=== PATIENT | male | born 1950 | race Caucasian/White ===

== ENCOUNTER 2024-03-14 18:32 | Emergency (ER) | payer OTHER, BC ==
[2024-03-14 18:54] VITALS: PULSE 83; RESP 18; TEMP 98.4; BMI 29.1
[2024-03-14] MEDS ORDERED: METOCLOPRAMIDE HCL INJECTION 10 MG/2 ML VIAL ONE (19:01)
[2024-03-14] MEDS ORDERED: ACETAMINOPHEN INJECTION 100 ML ONE (19:01)
[2024-03-14] MEDS: SODIUM CHLORIDE 1,000 ML IV STA (19:07)
[2024-03-14] MEDS: ACETAMINOPHEN 1000 MG/100 ML BAG IVPB ONE (19:08)
[2024-03-14] MEDS: METOCLOPRAMIDE HCL INJECTION 10 MG/2 ML VIAL IVPB ONE (19:15)
[2024-03-14 19:17] LABS: HEMATOCRIT 46.2 % (35.4-49); HEMOGLOBIN 14.8 G/dL (11.7-16.9); MCH 30.1 pg (25.7-33.7); MCHC 32.1 g/dl (32.0-35.9); MEAN CELL VOLUME 93.9 fl (80-96); MEAN PLT VOLUME 7.1 fl (7.5-11.1); PLATELET COUNT 137.1 10^3/uL (134-434); RBC 4.92 10^6/uL (4.00-5.60); RDW 13.8 % (11.9-15.9); WHITE BLOOD COUNT 6.6 10^3/uL (4.0-10.8)
[2024-03-14 19:30] LABS: ALBUMIN 4.2 g/dl (3.4-5.0); ALK PHOS 56 U/L (45-117); ANION GAP 11 mmol/L (4-13); BILIRUBIN,TOTAL 0.5 mg/dl (0.2-1); CALCIUM 9.5 mg/dl (8.5-10.1); CHLORIDE 103 mmol/L (98-107); CO2 24 mmol/L (21-32); CREATININE 0.8 mg/dl (0.6-1.3); GLUCOSE,RANDOM 183 mg/dl (74-106); POTASSIUM 3.6 mmol/L (3.5-5.1); SGOT/AST 16 U/L (15-37); SGPT/ALT 16 U/L (7-52); SODIUM 138 mmol/L (136-145); TOT PROT 6.7 g/dl (6.4-8.2)
[2024-03-14] MEDS ORDERED: ONDANSETRON 4 MG/2 ML VIAL ONE (20:08)
[2024-03-14] MEDS ORDERED: DEXAMETHASONE 4 MG TABLET (FP) ONE (20:08)
[2024-03-14 20:12] LABS: PLATELET ESTIMATE DECREASED
[2024-03-14] MEDS: ONDANSETRON 4 MG/2 ML VIAL IVPB ONE (20:14)
[2024-03-14] MEDS: DEXAMETHASONE 4 MG TABLET (FP) PO ONE (20:15)
[2024-03-14 20:41] VITALS: BP 157/90
[2024-03-14] MEDS: ATENOLOL 50 MG TABLET (FP) PO ONE (20:42)
== END 2024-03-14 20:50 | disposition home or self-care (01) ==
LOC: FER 18:32
PROC: 3E033NZ Introduction of Analgesics, Hypnotics, Sedatives into Peripheral Vein, Percutaneous Approach (ICD-10-PCS; principal; 2024-03-14)
PROC: 3E033GC Introduction of Other Therapeutic Substance into Peripheral Vein, Percutaneous Approach (ICD-10-PCS; 2024-03-14)
PROC: 3E033GC Introduction of Other Therapeutic Substance into Peripheral Vein, Percutaneous Approach (ICD-10-PCS; 2024-03-14)
PROC: 3E0337Z Introduction of Electrolytic and Water Balance Substance into Peripheral Vein, Percutaneous Approach (ICD-10-PCS; 2024-03-14)
DX: R51.9 Headache, unspecified (principal); J32.9 Chronic sinusitis, unspecified; R11.2 Nausea with vomiting, unspecified; R42 Dizziness and giddiness; H53.149 Visual discomfort, unspecified
CPT/HCPCS: 36415; 70450-TC; 80053; 82550; 84484; 85027; 93005; 99285-25; J0131